=== PATIENT | male | born 1970 | race Hispanic/Latino ===

== ENCOUNTER 2021-06-09 12:05 | Emergency (ER) | payer OTHER ==
[~2021-06-09] VITALS: Ht 182.9 cm; Wt 99.8 kg
== END 2021-06-09 12:45 | disposition home or self-care (01) ==
LOC: ER 12:15
DX: U07.1 COVID-19 (principal)
CPT/HCPCS: 99282

== ENCOUNTER → 2023-12-02 | Day surgery (SDC) | payer OTHER ==
[~2023-12-02] MED LIST: AMLODIPINE BESY10 MG PO; FINASTERIDE5 MG PO; FLOMAX0.4 MG PO; HYOSCYAMINE SULFATE 0.5 MG/ML INJ ONE; LABETALOL HCL100 MG PO; LIDOCAINE HCL 2% LOCAL INJ 5 ML SDV VIAL INJ ONE; PREDNISONE5 MG PO; PROPOFOL IV EMULSION 10 MG/ML 20 ML VIAL ONE; PROPOFOL IV EMULSION 10 MG/ML 50 ML VIAL IV ONE
[2023-12-02] MEDS: LACTATED RINGER'S 1,000 ML ONE (11:04)
[2023-12-02 13:42] VITALS: TEMP 97.3
[2023-12-02 14:05] VITALS: BP 140/82; PULSE 71; RESP 18; O2SAT 99
== END | disposition home or self-care (01) ==
LOC: OR 10:34
PROVIDERS: ATTEND Internal Medicine Gastroenterology
DX: K59.09 Other constipation (principal); D12.5 Benign neoplasm of sigmoid colon; K64.8 Other hemorrhoids; Z71.3 Dietary counseling and surveillance; G47.33 Obstructive sleep apnea (adult) (pediatric); I10 Essential (primary) hypertension; R20.8 Other disturbances of skin sensation; K21.9 Gastro-esophageal reflux disease without esophagitis; Z88.0 Allergy status to penicillin; N40.0 Benign prostatic hyperplasia without lower urinary tract symptoms; Z01.810 Encounter for preprocedural cardiovascular examination; Z79.899 Other long term (current) drug therapy; Z68.31 Body mass index [BMI] 31.0-31.9, adult; Z86.79 Personal history of other diseases of the circulatory system
CPT/HCPCS: 45385; 93005; J1980; J2001; J2704 ×2; J7121